=== PATIENT | female | born 1960 | race Caucasian/White ===

== ENCOUNTER 2019-08-12 13:00 | Emergency (ER) | payer MEDICARE, SELFPAY ==
[2019-08-12] VITALS (15 sets, daily range): BP systolic 105–142; BP diastolic 62–78; PULSE 67–85; RESP 12–30; TEMP 36.7; O2SAT 95–100; BMI 20.5
--- NOTE | 2019-08-12 13:12 | ED_ITS ---
HPI - Chest Pain General Chief Complaint: Chest Pain Stated Complaint: States thinks having heart attack Time Seen by Provider: 08/12/19 13:02 Source: patient Mode of arrival: Ambulatory Limitations: no limitations History of Present Illness HPI narrative: Patient is a 58-year-old female who presents with chest pressure. She has a history of [place] which she says she had a heart attack in the garden but never went in and was found later on and EKG. Today she dropped her off for his 1st chemotherapy appointment she felt better flies in her stomach and then felt pressure in her chest and pressure in her eyeballs. She does not have any pain at the moment. She denies any shortness of breath or diaphoresis. She says during her last heart attack she had sweating and shortness breath. She denies any dizziness. He actually says that she has felt some of the symptoms ongoing for the past few days but got significantly worse when she dropped her off. Father has 8 stents MD complaint: chest pain Pain location: substernal Severity: mild Quality: tightness Relieving factors: nothing Exacerbating factors: nothing Related Data Home Medications Medication Instructions Recorded Confirmed DOCUSATE SODIUM (Colace / Allie) 0 PO * UK DOSE/FREQUENCY #0 05/19/06 LEVOTHYROXINE SODIUM (Synthroid) 0.175 mg PO EVERY DAY #0 05/19/06 Oxycodone/Acetaminophen (Percocet 1 - 2 tab PO Q4H PRN #0 05/19/06 5-325 MG Tablet) [CITRUS PILL] #0 05/19/06 Allergies Allergy/AdvReac Type Severity Reaction Status Date / Time egg [EGG] Allergy Unknown HIVES, Verified 08/12/19 13:39 ITCHING morphine Allergy Unknown Verified 08/12/19 13:39 Penicillins [PENICILLINS] Allergy Unknown WELTS Verified 08/12/19 13:39 Sulfa (Sulfonamide Allergy Unknown ANAPHYLAXIS Verified 08/12/19 13:39 Antibiotics) [SULFA (SULFONAMIDE ANTIBIOTICS)] ANTIINFLAMMATORIES Allergy Unknown PHARMACIST Uncoded 08/12/19 13:39 SAYS STAY AWAY FROM IT. Review of Systems Review of Systems Narrative: GENERAL: Denies chills, fatigue, malaise, fever, sweats, travel HEENT: Denies sinus pain, ear pain, sore throat, difficulty swallowing, neck pain RESPIRATORY: Denies dyspnea, cough, wheezing, hemoptysis, sputum. CARDIOVASCULAR: See HPI GASTROINTESTINAL: Denies nausea, vomiting, abdominal pain, diarrhea, constipation, melena. : Denies dysuria, frequency, incontinence, hematuria, urinary retention, flank pain. MUSCULOSKELETAL: Denies weakness, joint pain, or bony pain SKIN: No rash, no erythema, no pruritus NEUROLOGIC: Denies weakness, dizziness, headache, numbness, change in speech, confusion PSYCHIATRIC: No concerning psychosocial issues. 12 point review of systems is negative except for those stated above and HPI Patient History Medical History Hypothyroid (Acute) Toxic shock (Acute) Social History Smoking Status: Current every day smoker Substance Use Type: marijuana Exam Initial Vital Signs Initial Vital Signs: Vital Signs Pulse Rate 79 08/12/19 13:03 Respiratory Rate 28 H 08/12/19 13:03 Pulse Oximetry 99 08/12/19 13:03 GENERAL: Well-appearing, well-nourished and in no acute distress. HEENT: Head atraumatic,EOMI, pupils reactive, face symmetric, moist mucous membranes. Trach scar present CARDIOVASCULAR: Regular rate and rhythm without murmurs, rubs or gallops. RESPIRATORY: Breath sounds equal bilaterally, no wheezes rales or rhonchi. ABDOMEN: Soft, nontender. Normoactive bowel sounds all 4 quadrants. No guarding or rebound. EXTREMITIES: Normal range of motion, no clubbing or edema. Neurovascularly intact NEUROLOGICAL: Alert and oriented x4.Normal gait and speech. SKIN: Warm, dry, no laceration, no petechiae, no rashes or lesions. Scores HEART Score Heart Score history: Slightly Suspicious Heart Score EKG: Normal Heart Score Age: 45-64 years old Heart Score risk factors: 1-2 risk factors Heart Score troponin: < or = to normal limit Heart Score Total: 2 Course Orders Ordered: ED Orders 08/12/19 13:10 XR chest 1V Stat Complete Blood Count AUTO DIFF Stat Comprehensive Metabolic Panel Stat Lipase Stat Partial Thromboplastin Time Stat Prothrombin Time INR Stat Troponin & CK Cardiac Panel Stat EKG-12 Lead Stat 08/12/19 14:16 EKG-12 Lead Stat 08/12/19 14:57 Troponin I Stat Discontinued Medications Aspirin (Aspirin Chew) 324 mg PO NOW ONE Stop: 08/12/19 13:11 Last Admin: 08/12/19 13:40 Dose: 324 mg Documented by: HARDY Vital Signs Vital signs: Vital Signs - 8 hr 08/12/19 13:03 08/12/19 13:06 08/12/19 13:10 Temperature Pulse Rate 79 85 78 Respiratory Rate 28 H 30 H 30 H Blood Pressure 142/78 H Pulse Oximetry 99 100 100 08/12/19 13:20 08/12/19 13:30 08/12/19 13:40 Temperature 98.1 F Pulse Rate 74 72 71 Respiratory Rate 18 12 30 H Blood Pressure 142/78 H 108/62 Pulse Oximetry 99 99 99 08/12/19 13:50 08/12/19 14:00 08/12/19 14:10 Temperature Pulse Rate 79 79 73 Respiratory Rate 23 26 H 14 Blood Pressure 109/66 Pulse Oximetry 99 98 98 08/12/19 14:20 08/12/19 14:30 08/12/19 14:40 Temperature Pulse Rate 70 76 77 Respiratory Rate 25 H 27 H 17 Blood Pressure 105/63 Pulse Oximetry 99 98 98 08/12/19 15:00 08/12/19 15:30 08/12/19 16:00 Temperature Pulse Rate 67 78 67 Respiratory Rate 14 28 H 16 Blood Pressure 106/62 112/69 105/65 Pulse Oximetry 99 95 96 MDM - Chest Pain Lab Data Attestation: I reviewed the patient's lab results. Result diagrams: 08/12/19 13:10 08/12/19 13:10 Labs: Lab Results 08/12/19 08/12/19 08/12/19 Range/Units 13:10 13:10 13:10 WBC 6.6 (4.5-11.0) X10^3/uL RBC 4.51 (4.0-5.2) X10^6/uL Hgb 13.7 (12.0-16.0) g/dL Hct 40.3 (36-46) % MCV 89.3 (80-100) fL MCH 30.4 (26-34) PG MCHC 34.1 (30-36) % RDW 14.3 (11.6-14.8) % Plt Count 279 (150-400) X10^3/uL Neut % (Auto) 52.9 (50-75) % Lymph % (Auto) 40.2 H (25-40) % [place] % (Auto) 4.4 (3-14) % Eos % (Auto) 1.9 L (2-4) % Baso % (Auto) 0.6 (0-2) % Neut # (Auto) 3500 (0363-9268) /uL Lymph # (Auto) 2600 (8840-6577) /uL [place] # (Auto) 300 (0-900) /uL Eos # (Auto) 100 (0-450) /uL Baso # (Auto) 0 (0-100) /uL PT 10.3 (10.1-12.7) SECONDS INR 0.9 (0.9-1.3) APTT 32 (26.4-36.2) SECONDS Sodium 140 (137-145) mmol/L Potassium 4.0 (3.4-5.1) mmol/L Chloride 105 (98-107) mmol/L Carbon Dioxide 30 (22-32) mmol/L BUN 22 H (7-17) mg/dL Creatinine 0.69 (0.52-1.04) mg/dL Estimated GFR > 60.0 (>60) mL/min BUN/Creatinine Ratio 31.9 H (6-22) Glucose 77 (70-100) mg/dL Calcium 9.5 (8.4-10.2) mg/dL Total Bilirubin 0.4 (0.2-1.3) mg/dL AST 38 H (14-36) IU/L ALT 24 (<35) IU/L Alkaline Phosphatase 43 (38-126) U/L Total Creatine Kinase 59 (30-135) U/L CK-MB (CK-2) TNP CK-MB (CK-2) Rel Index TNP Troponin I < 0.012 (0.01-0.034) ng/mL Total Protein 7.2 (6.3-8.2) g/dL Albumin 4.6 (3.5-5.0) g/dL Globulin 2.6 (1.7-4.1) g/dL Albumin/Globulin Ratio 1.8 (1.0-2.8) Lipase 223 (23-300) U/L 08/12/19 Range/Units 14:57 WBC (4.5-11.0) X10^3/uL RBC (4.0-5.2) X10^6/uL Hgb (12.0-16.0) g/dL Hct (36-46) % MCV (80-100) fL MCH (26-34) PG MCHC (30-36) % RDW (11.6-14.8) % Plt Count (150-400) X10^3/uL Neut % (Auto) (50-75) % Lymph % (Auto) (25-40) % [place] % (Auto) (3-14) % Eos % (Auto) (2-4) % Baso % (Auto) (0-2) % Neut # (Auto) (0348-6560) /uL Lymph # (Auto) (1164-6858) /uL [place] # (Auto) (0-900) /uL Eos # (Auto) (0-450) /uL Baso # (Auto) (0-100) /uL PT (10.1-12.7) SECONDS INR (0.9-1.3) APTT (26.4-36.2) SECONDS Sodium (137-145) mmol/L Potassium (3.4-5.1) mmol/L Chloride (98-107) mmol/L Carbon Dioxide (22-32) mmol/L BUN (7-17) mg/dL Creatinine (0.52-1.04) mg/dL Estimated GFR (>60) mL/min BUN/Creatinine Ratio (6-22) Glucose (70-100) mg/dL Calcium (8.4-10.2) mg/dL Total Bilirubin (0.2-1.3) mg/dL AST (14-36) IU/L ALT (<35) IU/L Alkaline Phosphatase (38-126) U/L Total Creatine Kinase (30-135) U/L CK-MB (CK-2) CK-MB (CK-2) Rel Index Troponin I < 0.012 (0.01-0.034) ng/mL Total Protein (6.3-8.2) g/dL Albumin (3.5-5.0) g/dL Globulin (1.7-4.1) g/dL Albumin/Globulin Ratio (1.0-2.8) Lipase (23-300) U/L Imaging Data Chest x-ray: Radiologist's Impression: PROCEDURE: XR CHEST 1V INDICATIONS: chest pain TECHNIQUE: One view of the chest was acquired. COMPARISON: [facility], , XR CHEST 2VW, 09/12/2016, 14:01. FINDINGS: Surgical changes and devices: None. Lungs and pleura: Lungs are clear. No pleural effusions or pneumothorax. Mediastinum: Mediastinal contours appear normal. Heart size is normal. Bones and chest wall: No suspicious bony lesions. Overlying soft tissues appear unremarkable. IMPRESSION: Stable radiographic evaluation of the chest without acute cardiopulmonary abnormalities or focal airspace disease. Dictated by: Richard Cunningham M.D. on 08/12/2019 at 14:40 Approved by: Richard Cunningham M.D. on 08/12/2019 at 14:41 ECG Data Attestation: I personally reviewed and interpreted this ECG as follows: Prior ECG tracings: not available for review Interpretation: Normal sinus rhythm rate 73 p.r. interval 142 QRS [address] elevation depression or T-wave inversions EKG 2. Normal sinus rhythm rate [address] changes similar to prior MDM Narrative Medical decision making narrative: Patient states that she is allergic to aspirin she is not sure what her allergy is someone told her not to take it some time ago. She is willing to try she took aspirin she has had no reaction to it. She says that her chest discomfort is very minimal she wants nothing more for pain. She says in the center of her chest it feels like anxiety but she has some of pressure points around her chest. She still feels like she has some fluttering in her abdomen. I discussed with patient need for outpatient stress test and further workup and when to return to the emergency department. I discussed all findings with the patient , Education has been performed regarding treatment plan, diagnosis, warning signs and symptoms and all concerns have been addressed. Verbally agree with and understood all of the above. Discharge Plan Departure Patient Disposition: Home Clinical Impression: Atypical chest pain Discharge Date/Time: 08/12/19 16:14 Instructions: DI for Atypical Chest Pain Activity Restrictions/Additional Instructions: *You have been diagnosed with atypical chest pain *What to do: At this time I recommend you have an outpatient stress test and echocardiogram arranged by your primary care provider. Do not need to stay in the hospital have this testing done *Continue to take medications as directed *Follow up with your primary care provider in 2-3 days *Return to ER if you should have increasing chest pain, heart palpitations shortness of breath, sweating or any new, worsening or concerning symptoms Prescriptions: No Action DOCUSATE SODIUM (Colace / Allie) 0 PO * UK DOSE/FREQUENCY Qty: 0 RF: 0 LEVOTHYROXINE SODIUM (Synthroid) 0.175 mg PO EVERY DAY Qty: 0 RF: 0 Oxycodone/Acetaminophen (Percocet 5-325 MG Tablet) 1 - 2 tab PO Q4H PRN Qty: 0 RF: 0 [CITRUS PILL] Qty: 0 RF: 0 Referrals: Mary Grace Madden PA-C [Primary Care Provider] -
[2019-08-12 13:18] LABS: Add Manual Diff / Slide Review NO; Basophils Absolute Auto 0 /uL (0-100); Basophils Percent Auto 0.6 % (0-2); Eosinophils Absolute Auto 100 /uL (0-450); Eosinophils Percent Auto 1.9 % (2-4); Hematocrit 40.3 % (36-46); Hemoglobin 13.7 g/dL (12.0-16.0); Lymphocytes Absolute Auto 2600 /uL (1100-4500); Lymphocytes Percent Auto 40.2 % (25-40); Mean Corpuscular HGB Conc 34.1 % (30-36); Mean Corpuscular Hemoglobin 30.4 PG (26-34); Mean Corpuscular Volume 89.3 fL (80-100); Monocytes Absolute Auto 300 /uL (0-900); Monocytes Percent Auto 4.4 % (3-14); Neutrophils Absolute Auto 3500 /uL (1500-7000); Neutrophils Percent Auto 52.9 % (50-75); Platelet Count 279 X10^3/uL (150-400); Red Blood Cell Count 4.51 X10^6/uL (4.0-5.2); Red Cell Distribution Width 14.3 % (11.6-14.8); White Blood Cell Count 6.6 X10^3/uL (4.5-11.0)
[2019-08-12 13:28] LABS: INR 0.9 (0.9-1.3); Prothrombin Time 10.3 SECONDS (10.1-12.7)
[2019-08-12 13:31] LABS: PTT Partial Thromboplastin Tim 32 SECONDS (26.4-36.2)
[2019-08-12 13:32] LABS: Alanine Aminotransferase 24 IU/L (<35); Albumin 4.6 g/dL (3.5-5.0); Alkaline Phosphatase 43 U/L (38-126); Aspartate Aminotransferase 38 IU/L (14-36); BUN Creatinine Ratio 31.9 (6-22); Bilirubin Total 0.4 mg/dL (0.2-1.3); Blood Urea Nitrogen 22 mg/dL (7-17); Calcium 9.5 mg/dL (8.4-10.2); Carbon Dioxide 30 mmol/L (22-32); Chloride 105 mmol/L (98-107); Creatine Kinase 59 U/L (30-135); Estimated Glomerular Filt Rate > 60.0 mL/min (>60); Glucose 77 mg/dL (70-100); Sodium 140 mmol/L (137-145); Total Protein 7.2 g/dL (6.3-8.2)
[2019-08-12 13:33] LABS: Albumin Globulin Ratio 1.8 (1.0-2.8); Globulin 2.6 g/dL (1.7-4.1); HEMOLYSIS 26 (0-50); Lipase 223 U/L (23-300)
[2019-08-12] MEDS: ASPIRIN 81 MG CHEW TAB 324 MG PO (13:40)
[2019-08-12 13:44] LABS: Troponin I < 0.012 ng/mL (0.01-0.034)
[2019-08-12 15:27] LABS: Troponin I < 0.012 ng/mL (0.01-0.034)
== END 2019-08-12 16:14 | disposition home or self-care (01) ==
PROVIDERS: Emergency Provider Emergency Medicine; PCP Physician Assistant
DX: R07.89 Other chest pain (principal)
CPT/HCPCS: 36415; 71045; 80053; 82550; 83690; 84484; 85025; 85610; 85730; 93005; 99285

== ENCOUNTER 2020-03-11 21:54 | Emergency (ER) | payer MEDICARE, SELFPAY ==
[2020-03-11 21:55] VITALS: BP 130/78; PULSE 87; RESP 17; TEMP 36.8; O2SAT 97; BMI 25.2
[2020-03-11 22:14] VITALS: PULSE 74; O2SAT 98
--- NOTE | 2020-03-11 22:29 | ED_ITS ---
HPI - Female Genitourinary General Chief complaint: Urogenital-Female Stated complaint: burning with urination, intense pain Time Seen by Provider: 03/11/20 21:55 Source: patient Mode of arrival: Ambulatory Limitations: no limitations History of Present Illness HPI Narrative: 59-year-old female daily smoker with history of hypothyroid presents with a chief complaint of burning, frequency, urgency and dysuria over the past few days. She was seen and evaluated by her PCP earlier today and found to have a UTI and was prescribed Macrobid. She's taken one dose. Since the visit she admits to some episodic flank pain. She denies fever, chills nausea or vomiting. Her pain does not follow any obvious pattern and no clear provocation or palliation is noted. It does radiate around her left flank into her suprapubic region. She denies any vaginal bleeding or discharge. MD Complaint: dysuria and UTI Onset (ago): day(s) Location: suprapubic Female Urogenital Radiation: L Flank Severity: moderate Quality: Aching Duration: intermittent Exacerbating factors: none Urinary symptoms: Difficulty Urinating, Dysuria, Flank Pain, Frequency and Urgency Patient : No Associated symptoms: denies other symptoms Related Data Home Medications Medication Instructions Recorded Confirmed DOCUSATE SODIUM (Colace / Allie) 0 PO * UK DOSE/FREQUENCY #0 05/19/06 LEVOTHYROXINE SODIUM (Synthroid) 0.175 mg PO EVERY DAY #0 05/19/06 Oxycodone/Acetaminophen (Percocet 1 - 2 tab PO Q4H PRN #0 05/19/06 5-325 MG Tablet) [CITRUS PILL] #0 05/19/06 Previous Rx's Medication Instructions Recorded ciprofloxacin HCl [Cipro] 500 mg PO BID #14 tab 03/11/20 Allergies Allergy/AdvReac Type Severity Reaction Status Date / Time egg [EGG] Allergy Unknown HIVES, Verified 08/12/19 13:39 ITCHING morphine Allergy Unknown Verified 08/12/19 13:39 Penicillins [PENICILLINS] Allergy Unknown WELTS Verified 08/12/19 13:39 Sulfa (Sulfonamide Allergy Unknown ANAPHYLAXIS Verified 08/12/19 13:39 Antibiotics) [SULFA (SULFONAMIDE ANTIBIOTICS)] ANTIINFLAMMATORIES Allergy Unknown PHARMACIST Uncoded 08/12/19 13:39 SAYS STAY AWAY FROM IT. Review of Systems Constitutional Constitutional: Denies chills, Denies fatigue, Denies fever(s), Denies frequent falls, Denies lethargy and Denies weakness Eyes Eyes: Denies change in vision, Denies eye discharge, Denies irritation and Denies loss of vision ENT Ears, Nose, Mouth, and Throat: Denies change in voice, Denies dizziness, Denies neck pain, Denies sore throat and Denies throat swelling Cardiovascular Cardiovascular: Denies chest pain, Denies irregular heart rhythm, Denies lightheadedness, Denies palpitations, Denies dyspnea, Denies dyspnea on exertion and Denies orthopnea Respiratory Respiratory: Denies cough, Denies dyspnea, Denies dyspnea on exertion and Denies wheezing Gastrointestinal Gastrointestinal: Denies abdominal pain, Denies change in bowel habits, Denies diarrhea, Denies nausea and Denies vomiting Genitourinary Genitourinary: Reports dysuria, Reports dysuria, Reports flank pain, Reports urinary frequency, Reports urinary incontinence and Reports urinary urgency Genitourinary: Reports urinary frequency, Reports difficulty voiding, Reports dysuria, Reports dysuria, Reports pelvic pain, Reports flank pain, Reports urinary incontinence and Reports urinary urgency Musculoskeletal Musculoskeletal: Denies neck pain and Denies numbness Integumentary/Breasts Skin/Breast: Denies pruritus, Denies erythema, Denies rash and Denies wounds Neurologic Neurologic: Denies behavioral changes, Denies confusion, Denies dizziness, Denies frequent falls, Denies loss of vision, Denies numbness and Denies weakness Psychiatric Psychiatric: Denies anxiety, Denies behavioral changes, Denies confusion, Denies depression, Denies homicidal ideation and Denies suicidal ideation Endocrine Endocrine: Denies fatigue, Denies flushing and Denies palpitations Hematologic/Lymphatic Hematologic/Lymphatic: Denies easy bruising Allergic/Immunologic Allergic/Immunologic: Denies urticaria, Denies throat swelling and Denies wheezing Patient History Medical History Hypothyroid Toxic shock Substance Use Type: marijuana Exam Narrative Exam Narrative: GENERAL: [59] year old patient appears stated age. Well- nourished, well-developed patient, in mild distress. HEAD: Atraumatic. Normocephalic. EYES: Pupils equal round and reactive. Extraocular motions intact. No scleral icterus. No injection or drainage. ENT: Nose without bleeding, purulent drainage. Throat without erythema, tonsillar hypertrophy or exudate. Airway patent. NECK: Trachea midline. Non tender CARDIOVASCULAR: Regular rate and rhythm without murmurs, gallops, or rubs. RESPIRATORY: Clear to auscultation. Breath sounds equal bilaterally. No wheezes, rales, or rhonchi. GASTROINTESTINAL: Abdomen soft, mild tenderness in suprapubic region, nondistended. EXTREMITIES: No edema or joint tenderness. BACK: Nontender without deformity or crepitance. No flank tenderness. NEURO: AOx3. SKIN: No rash or erythema of visible areas Initial Vital Signs Initial Vital Signs: Vital Signs Temperature 98.3 F 03/11/20 21:55 Pulse Rate 87 03/11/20 21:55 Respiratory Rate 17 03/11/20 21:55 Blood Pressure 130/78 03/11/20 21:55 Pulse Oximetry 97 03/11/20 21:55 Course Orders Ordered: ED Orders 03/11/20 22:10 Urine Culture Stat Urine Microscopic Stat 03/11/20 22:38 CT kidney ureter bladder (KUB) Stat 03/11/20 22:55 Basic Metabolic Panel Stat Complete Blood Count AUTO DIFF Stat Discontinued Medications Levofloxacin (Levofloxacin 250 Mg Tablet) 500 mg PO NOW ONE Stop: 03/11/20 23:58 Last Admin: 03/12/20 00:03 Dose: 500 mg Documented by: CHARLINE Vital Signs Vital signs: Vital Signs - 8 hr 03/11/20 21:55 Temperature 98.3 F Pulse Rate 87 Respiratory Rate 17 Blood Pressure 130/78 Pulse Oximetry 97 MDM - Female Genitourinary Lab Data Result diagrams: 03/11/20 22:55 03/11/20 22:55 Labs: Lab Results 03/11/20 03/11/20 03/11/20 Range/Units 22:10 22:55 22:55 WBC 12.0 H (4.5-11.0) X10^3/uL RBC 4.48 (4.0-5.2) X10^6/uL Hgb 12.8 (12.0-16.0) g/dL Hct 39.8 (36-46) % MCV 88.7 (80-100) fL MCH 28.5 (26-34) PG MCHC 32.2 (30-36) % RDW 15.6 H (11.6-14.8) % Plt Count 237 (150-400) X10^3/uL Neut % (Auto) 69.6 (50-75) % Lymph % (Auto) 23.3 L (25-40) % [place] % (Auto) 5.5 (3-14) % Eos % (Auto) 1.2 L (2-4) % Baso % (Auto) 0.4 (0-2) % Neut # (Auto) 8400 H (7267-7114) /uL Lymph # (Auto) 2800 (6564-6730) /uL [place] # (Auto) 700 (0-900) /uL Eos # (Auto) 100 (0-450) /uL Baso # (Auto) 0 (0-100) /uL Sodium 137 (137-145) mmol/L Potassium 3.8 (3.4-5.1) mmol/L Chloride 104 (98-107) mmol/L Carbon Dioxide 32 (22-32) mmol/L BUN 15 (7-17) mg/dL Creatinine 0.93 (0.52-1.04) mg/dL Estimated GFR > 60.0 (>60) mL/min BUN/Creatinine Ratio 16.1 (6-22) Glucose 89 (70-100) mg/dL Calcium 9.4 (8.4-10.2) mg/dL Urine RBC 0-1/hpf (0-5/HPF) Urine WBC 10-30/hpf H (0-5/HPF) Urine Bacteria Few (2-10) H (None) Ur Culture Indicated? Specimen cultured Urine Dip Bedside Urine Glucose Negative Bedside Urine Bilirubin - Negative Bedside Urine Ketone - Negative Urine Specific [place] 1.010 Bedside Urine Occult Blood +++ Bedside Urine pH 6.0 Bedside Urine Protein +/- 15 Bedside Urine Urobilinogen - Negative Bedside Urine Nitrite - Negative Bedside Urine Leukocytes ++ [address] scan - abdomen/pelvis: Radiologist's Impression: No urinary stone or other acute findings MDM Narrative Medical decision making narrative: Multiple etiologies for patient's symptoms considered including: [Kidney stone versus pyelonephritis versus other] Patient's symptoms improved over duration of stay with above-stated therapies. Findings and discharge diagnosis discussed with patient/family followed by verbalization of understanding Return precautions discussed with patient/family whom verbalize understanding. Discharge Plan Departure Patient Disposition: Home Clinical Impression: Pyelonephritis Instructions: DI for Kidney Infection Activity Restrictions/Additional Instructions: *You have been diagnosed with [urinary tract infection which is likely moving toward her left kidney] *What to do: *Take medications as directed: The antibiotic which she took earlier is not likely to be very helpful for a kidney infection, please stop the antibiotic you were prescribed earlier and get the prescription filled that we gave you. *Follow up with your primary care provider in 2-3 days, call for an appointment. Let them know you were seen in the Emergency Department and that we ask that you be seen in follow up *Return to ER if you should have any new, worsening or concerning symptoms, such as [fever, shaking chills, worsening pain, persistent vomiting or other bothersome symptoms Prescriptions: New ciprofloxacin HCl [Cipro] 500 mg tablet 500 mg PO BID Qty: 14 RF: 0 No Action DOCUSATE SODIUM (Colace / Allie) 0 PO * UK DOSE/FREQUENCY Qty: 0 RF: 0 LEVOTHYROXINE SODIUM (Synthroid) 0.175 mg PO EVERY DAY Qty: 0 RF: 0 Oxycodone/Acetaminophen (Percocet 5-325 MG Tablet) 1 - 2 tab PO Q4H PRN Qty: 0 RF: 0 [CITRUS PILL] Qty: 0 RF: 0 Referrals: Mary Grace Madden PA-C [Primary Care Provider] -
[2020-03-11 22:30] VITALS: BP 139/94; PULSE 82; O2SAT 97
[2020-03-11 22:31] LABS: Bacteria Urine Few (2-10); Culture Indicated Urine Specimen Cultured; RBC Urine 0-1/HPF (0-5/HPF); WBC Urine 10-30/HPF (0-5/HPF)
--- NOTE | 2020-03-11 22:38 | DI.CT.S_ITS ---
PROCEDURE: CT KIDNEY URETER BLADDER (KUB) INDICATIONS: flank pain, hematuria TECHNIQUE: Noncontrast 5 mm thick sections acquired from the diaphragms to the symphysis. 5 mm thick coronal and sagittal reformats were then performed. For radiation dose reduction, the following was used: automated exposure control, adjustment of mA and/or kV according to patient size. COMPARISON: US, ABDOMEN COMPLETE, 07/27/2014, 11:29. FINDINGS: Image quality: Excellent. Lung bases: Lung bases are clear. Heart size is normal. Urinary system: Both kidneys are normal in size. No kidney stones. No hydronephrosis or perinephric fat stranding. There is a 5.4 cm simple appearing cyst in the superior pole of the left kidney.Both ureters appear non-dilated throughout their expected courses. Bladder is semi contracted. Bladder wall thickness is normal; no calcified bladder stones. Other solid organs: Liver is normal in size. Subtle hypodensity adjacent to the falciform ligament is likely secondary to focal fat. Gallbladder is normal. Pancreas is normal in contours. Spleen is normal in size. No adrenal nodules. Peritoneum and bowel: Normal appendix. Unenhanced bowel loops demonstrate normal wall thickness and caliber. No free fluid or air. Nodes and vessels: No retroperitoneal or mesenteric adenopathy by size criteria. Aorta and inferior vena cava are normal in caliber. Moderate aortic calcification. Abdominal wall: No ventral hernias. Pelvis: Uterus and ovaries are unremarkable. No free fluid in the cul-de-sac or adnexa. No inguinal hernias or adenopathy. Bones: No suspicious bony lesions. No vertebral body compression fractures. IMPRESSION: 1. No urinary stones or hydronephrosis. 2. A large 5.4 cm diameter simple appearing cyst in the superior pole of the right kidney. 3. Normal appendix. No significant discrepancy with the operation shift supervisor radiology preliminary report. Dictated by: Lionel Garrett M.D. on 03/12/2020 at 7:58 Approved by: Lionel Garrett M.D. on 03/12/2020 at 8:02
[2020-03-11 23:00] VITALS: BP 107/72; PULSE 68; O2SAT 96
[2020-03-11 23:10] LABS: Add Manual Diff / Slide Review NO; Basophils Absolute Auto 0 /uL (0-100); Basophils Percent Auto 0.4 % (0-2); Eosinophils Absolute Auto 100 /uL (0-450); Eosinophils Percent Auto 1.2 % (2-4); Hematocrit 39.8 % (36-46); Hemoglobin 12.8 g/dL (12.0-16.0); Lymphocytes Absolute Auto 2800 /uL (1100-4500); Lymphocytes Percent Auto 23.3 % (25-40); Mean Corpuscular HGB Conc 32.2 % (30-36); Mean Corpuscular Hemoglobin 28.5 PG (26-34); Mean Corpuscular Volume 88.7 fL (80-100); Monocytes Absolute Auto 700 /uL (0-900); Monocytes Percent Auto 5.5 % (3-14); Neutrophils Absolute Auto 8400 /uL (1500-7000); Neutrophils Percent Auto 69.6 % (50-75); Platelet Count 237 X10^3/uL (150-400); Red Blood Cell Count 4.48 X10^6/uL (4.0-5.2); Red Cell Distribution Width 15.6 % (11.6-14.8)
[2020-03-11 23:17] LABS: BUN Creatinine Ratio 16.1 (6-22); Blood Urea Nitrogen 15 mg/dL (7-17); Calcium 9.4 mg/dL (8.4-10.2); Carbon Dioxide 32 mmol/L (22-32); Chloride 104 mmol/L (98-107); Estimated Glomerular Filt Rate > 60.0 mL/min (>60); Glucose 89 mg/dL (70-100); HEMOLYSIS < 15 (0-50); Potassium 3.8 mmol/L (3.4-5.1); Sodium 137 mmol/L (137-145)
[2020-03-11 23:30] VITALS: PULSE 70; O2SAT 96
[2020-03-12] VITALS: PULSE 71; O2SAT 94
[2020-03-12] MEDS: levoFLOXacin 250 MG TABLET 500 MG PO (00:03)
[2020-03-12 00:30] VITALS: PULSE 70; O2SAT 92
[2020-03-12 00:36] VITALS: BP 97/62; PULSE 75; O2SAT 94
== END 2020-03-12 00:43 | disposition home or self-care (01) ==
PROVIDERS: Emergency Provider Emergency Medicine; PCP Physician Assistant
DX: N12 Tubulo-interstitial nephritis, not specified as acute or chronic (principal); R10.9 Unspecified abdominal pain; R10.2 Pelvic and perineal pain; R35.0 Frequency of micturition; R31.9 Hematuria, unspecified; E03.9 Hypothyroidism, unspecified
CPT/HCPCS: 36415; 74176; 80048; 81003; 81015; 85025; 87077; 87086; 87186; 99284

== ENCOUNTER 2020-03-19 13:16 | Emergency (ER) | payer MEDICARE, SELFPAY ==
[2020-03-19] VITALS (7 sets, daily range): BP systolic 102–146; BP diastolic 63–77; PULSE 60–84; RESP 10–18; TEMP 37; O2SAT 97–99; BMI 25.2
[2020-03-19 13:50] LABS: Bacteria Urine None Seen; RBC Urine None Seen (0-5/HPF); WBC Urine None Seen (0-5/HPF)
--- NOTE | 2020-03-19 13:55 | ED.WEAKNESS ---
HPI - Weakness General Chief complaint: Weakness Stated complaint: nausea,light headed,shaking,heavy arms Time Seen by Provider: 03/19/20 13:20 Source: patient and old records reviewed Mode of arrival: Ambulatory Limitations: no limitations History of Present Illness HPI Narrative: Patient is a 59-year-old female who presents with generalized weakness. She was seen evaluated last week diagnosed with pyelonephritis put on antibiotics which she finished. She says those symptoms have overall improved but she just generally feels weak all over nauseated no vomiting. She denies any chest pain palpitation she has not passed out no cough or shortness of breath. Patient states that her TSH is greater than 200 as of last week per her primary care provider. I actually do not have results in our computer system. She states she nor primary are working on it. MD Complaint: generalized weakness Related Data Home Medications Medication Instructions Recorded Confirmed DOCUSATE SODIUM (Colace / Allie) 0 PO * DOSE/FREQUENCY #0 05/19/06 LEVOTHYROXINE SODIUM (Synthroid) 0.175 mg PO EVERY DAY #0 05/19/06 Oxycodone/Acetaminophen (Percocet 1 - 2 tab PO Q4H PRN #0 05/19/06 5-325 MG Tablet) [CITRUS PILL] #0 05/19/06 Previous Rx's Medication Instructions Recorded ciprofloxacin HCl [Cipro] 500 mg PO BID #14 tab 03/11/20 Allergies Allergy/AdvReac Type Severity Reaction Status Date / Time egg [EGG] Allergy Unknown HIVES, Verified 08/12/19 13:39 ITCHING morphine Allergy Unknown Verified 08/12/19 13:39 Penicillins [PENICILLINS] Allergy Unknown WELTS Verified 08/12/19 13:39 Sulfa (Sulfonamide Allergy Unknown ANAPHYLAXIS Verified 08/12/19 13:39 Antibiotics) [SULFA (SULFONAMIDE ANTIBIOTICS)] ANTIINFLAMMATORIES Allergy Unknown PHARMACIST Uncoded 08/12/19 13:39 SAYS STAY AWAY FROM IT. Review of Systems Review of Systems ROS Unobtainable: All systems reviewed & are unremarkable except as noted in HPI and below Constitutional Constitutional: Denies chills, Denies fever(s), Reports lethargy and Reports weakness Cardiovascular Cardiovascular: Denies chest pain, Denies irregular heart rhythm, Denies lightheadedness, Denies palpitations, Denies dyspnea, Denies dyspnea on exertion and Denies orthopnea Respiratory Respiratory: Denies cough, Denies dyspnea, Denies dyspnea on exertion and Denies wheezing Gastrointestinal Gastrointestinal: Denies abdominal pain, Reports nausea and Denies vomiting Integumentary/Breasts Skin/Breast: Denies pruritus, Denies erythema, Denies rash and Denies wounds Neurologic Neurologic: Reports weakness Endocrine Endocrine: Denies palpitations Allergic/Immunologic Allergic/Immunologic: Denies wheezing Patient History Medical History (Updated 03/19/20 @ 15:24 by Radha Mccoy DO) Hypothyroid Toxic shock Social History Smoking Status: Current every day smoker Smoking Status: Current every day smoker Substance Use Type: marijuana Exam Initial Vital Signs Initial Vital Signs: Vital Signs Pulse Rate 71 03/19/20 13:47 Respiratory Rate 16 03/19/20 13:47 Pulse Oximetry 99 03/19/20 13:47 GENERAL: Well-appearing, well-nourished and in no acute distress. HEENT: Head atraumatic,EOMI, pupils reactive, face symmetric, moist mucous membranes CARDIOVASCULAR: Regular rate and rhythm without murmurs, rubs or gallops. RESPIRATORY: Breath sounds equal bilaterally, no wheezes rales or rhonchi. ABDOMEN: Soft, nontender. Normoactive bowel sounds all 4 quadrants. No guarding or rebound. : No CVA tenderness EXTREMITIES: Normal range of motion, no clubbing or edema. Neurovascularly intact NEUROLOGICAL: Alert and oriented x4.Normal gait and speech. SKIN: Warm, dry, no laceration, no petechiae, no rashes or lesions. Course Orders Ordered: ED Orders 03/19/20 13:30 Urinalysis and Microscopic Stat 03/19/20 13:39 EKG-12 Lead Stat 03/19/20 14:16 Complete Blood Count AUTO DIFF Stat Comprehensive Metabolic Panel Stat Lipase Stat Discontinued Medications Sodium Chloride (Normal Saline 0.9%) 1,000 mls @ 1,000 mls/hr IV CONT SHANNON Last Admin: 03/19/20 14:02 Dose: 1,000 mls/hr Documented by: TSERING Ondansetron HCl (Ondansetron 4 Mg/2 Ml Inj) 4 mg IV NOW ONE Stop: 03/19/20 13:39 Last Admin: 03/19/20 14:02 Dose: 4 mg Documented by: TSERING Vital Signs Vital signs: Vital Signs - 8 hr 03/19/20 13:47 03/19/20 14:06 03/19/20 14:43 Temperature 98.6 F Pulse Rate 71 76 75 Respiratory Rate 16 16 18 Blood Pressure 128/76 146/77 H Pulse Oximetry 99 98 99 03/19/20 14:44 03/19/20 15:00 03/19/20 15:01 Temperature Pulse Rate 68 64 60 Respiratory Rate 17 11 L 10 L Blood Pressure 121/63 102/64 Pulse Oximetry 99 97 97 03/19/20 15:43 Temperature Pulse Rate 84 Respiratory Rate 16 Blood Pressure 136/64 Pulse Oximetry 98 MDM - Weakness Lab Data Attestation: I reviewed the patient's lab results. Result diagrams: 03/19/20 14:16 03/19/20 14:16 Labs: Lab Results 03/19/20 03/19/20 03/19/20 Range/Units 13:30 14:16 14:16 WBC 5.5 (4.5-11.0) X10^3/uL RBC 4.05 (4.0-5.2) X10^6/uL Hgb 12.2 (12.0-16.0) g/dL Hct 36.0 (36-46) % MCV 88.9 (80-100) fL MCH 30.1 (26-34) PG MCHC 33.9 (30-36) % RDW 16.0 H (11.6-14.8) % Plt Count 234 (150-400) X10^3/uL Neut % (Auto) 47.9 L (50-75) % Lymph % (Auto) 43.6 H (25-40) % [place] % (Auto) 5.2 (3-14) % Eos % (Auto) 2.3 (2-4) % Baso % (Auto) 1.0 (0-2) % Neut # (Auto) 2600 (2137-8687) /uL Lymph # (Auto) 2400 (2685-1104) /uL [place] # (Auto) 300 (0-900) /uL Eos # (Auto) 100 (0-450) /uL Baso # (Auto) 100 (0-100) /uL Sodium 135 L (137-145) mmol/L Potassium 3.5 (3.4-5.1) mmol/L Chloride 103 (98-107) mmol/L Carbon Dioxide 31 (22-32) mmol/L BUN 14 (7-17) mg/dL Creatinine 1.04 (0.52-1.04) mg/dL Estimated GFR 54.4 L (>60) mL/min BUN/Creatinine Ratio 13.5 (6-22) Glucose 86 (70-100) mg/dL Calcium 9.0 (8.4-10.2) mg/dL Total Bilirubin 0.3 (0.2-1.3) mg/dL AST 61 H (14-36) IU/L ALT 19 (<35) IU/L Alkaline Phosphatase 31 L (38-126) U/L Total Protein 6.7 (6.3-8.2) g/dL Albumin 4.3 (3.5-5.0) g/dL Globulin 2.4 (1.7-4.1) g/dL Albumin/Globulin Ratio 1.8 (1.0-2.8) Lipase 166 (23-300) U/L Urine Color Yellow Urine Appearance Clear Urine pH 7.0 (4.5-8.0) Ur Specific [place] 1.010 (1.000-1.035) Urine Protein Negative (Negative) Urine Glucose (UA) Negative (Negative) g/dL Urine Ketones Negative (NEGATIVE) Urine Occult Blood Negative (Negative) Urine Nitrate Negative (Negative) Urine Bilirubin Negative (NEGATIVE) Urine Urobilinogen 0.2 (0.2) E.U./dL Ur Leukocyte Esterase Negative (NEGATIVE) Urine RBC None seen (0-5/HPF) Urine WBC None seen (0-5/HPF) Ur Squamous Epith Cells 0-1 /hpf (0-5/HPF) Urine Bacteria None seen (None) Ur Culture Indicated? Culture not indicate Urine Dip Bedside Urine Glucose Negative Bedside Urine Bilirubin - Negative Bedside Urine Ketone - Negative Urine Specific [place] 1.015 Bedside Urine Occult Blood - Negative Bedside Urine pH 6.5 Bedside Urine Protein - Negative Bedside Urine Urobilinogen - Negative Bedside Urine Nitrite - Negative Bedside Urine Leukocytes - Negative Esterase MDM Narrative Medical decision making narrative: At this time patient is feeling better after Zofran. She does not want anything for pain. We did not check her TSH it was checked last week. It sounds that she is drinking tea and taking 77 micro g of levothyroxine. I will defer thyroid management to her primary care provider. At this time she is overall feeling a little bit better after fluids. She does not appear septic blood work is reassuring. No specific pain. She had a CT KUB last week which showed a right renal cyst but no kidney stone. At this time without specific pain or abnormal blood work I see no need for further imaging. I think her thyroid is extremely off and she has a lot of stress at home. Discussed results with patient and she agrees she feels better and would like to go. Discharge Plan Departure Patient Disposition: Home Clinical Impression: Weakness Hypothyroid Qualifiers: Hypothyroidism type: other Qualified Code(s): E03.8 - Other specified hypothyroidism Instructions: DI for Hypothyroidism Activity Restrictions/Additional Instructions: *You have been diagnosed with hypothyroid *What to do: I think your thyroid is likely contributing to her weakness and nausea. Please follow-up with her primary care provider at this can take a number of weeks to get under control however your medication may need to be changed. At this time no sign of infection blood work is overall reassuring *Continue to take medications as directed *Follow up with your primary care provider in 2-3 days *Return to ER if you should have increased weakness persistent nausea or vomiting fever or any new, worsening or concerning symptoms Prescriptions: No Action DOCUSATE SODIUM (Colace / Allie) 0 PO * UK DOSE/FREQUENCY Qty: 0 RF: 0 LEVOTHYROXINE SODIUM (Synthroid) 0.175 mg PO EVERY DAY Qty: 0 RF: 0 Oxycodone/Acetaminophen (Percocet 5-325 MG Tablet) 1 - 2 tab PO Q4H PRN Qty: 0 RF: 0 [CITRUS PILL] Qty: 0 RF: 0 ciprofloxacin HCl [Cipro] 500 mg tablet 500 mg PO BID Qty: 14 RF: 0 Referrals: Mary Grace Madden PA-C [Primary Care Provider] -
[2020-03-19] MEDS: ONDANSETRON 4 MG/2 ML INJ IV (14:02)
[2020-03-19] MEDS: SODIUM CHLORIDE 0.9% 1,000 ML 1000 ML IV (14:02)
[2020-03-19 14:05] LABS: Appearance Urine UA CLEAR; Bilirubin Urine UA NEGATIVE (NEGATIVE); Color Urine UA YELLOW; Glucose Urine UA NEGATIVE (Negative); Ketones Urine UA NEGATIVE (NEGATIVE); Leukocyte Esterase Urine UA NEGATIVE (NEGATIVE); Nitrite Urine UA NEGATIVE (Negative); Occult Blood Urine UA NEGATIVE (Negative); Protein Urine UA NEGATIVE (Negative); Urobilinogen Urine UA 0.2 E.U./dL (0.2)
[2020-03-19 14:31] LABS: Add Manual Diff / Slide Review NO; Basophils Absolute Auto 100 /uL (0-100); Eosinophils Absolute Auto 100 /uL (0-450); Eosinophils Percent Auto 2.3 % (2-4); Hemoglobin 12.2 g/dL (12.0-16.0); Lymphocytes Absolute Auto 2400 /uL (1100-4500); Lymphocytes Percent Auto 43.6 % (25-40); Mean Corpuscular HGB Conc 33.9 % (30-36); Mean Corpuscular Hemoglobin 30.1 PG (26-34); Mean Corpuscular Volume 88.9 fL (80-100); Monocytes Absolute Auto 300 /uL (0-900); Monocytes Percent Auto 5.2 % (3-14); Neutrophils Absolute Auto 2600 /uL (1500-7000); Neutrophils Percent Auto 47.9 % (50-75); Platelet Count 234 X10^3/uL (150-400); Red Blood Cell Count 4.05 X10^6/uL (4.0-5.2); White Blood Cell Count 5.5 X10^3/uL (4.5-11.0)
[2020-03-19 14:36] LABS: Alanine Aminotransferase 19 IU/L (<35); Albumin 4.3 g/dL (3.5-5.0); Albumin Globulin Ratio 1.8 (1.0-2.8); Alkaline Phosphatase 31 U/L (38-126); Aspartate Aminotransferase 61 IU/L (14-36); BUN Creatinine Ratio 13.5 (6-22); Bilirubin Total 0.3 mg/dL (0.2-1.3); Blood Urea Nitrogen 14 mg/dL (7-17); Carbon Dioxide 31 mmol/L (22-32); Chloride 103 mmol/L (98-107); Estimated Glomerular Filt Rate 54.4 mL/min (>60); Globulin 2.4 g/dL (1.7-4.1); Glucose 86 mg/dL (70-100); HEMOLYSIS < 15 (0-50); Lipase 166 U/L (23-300); Potassium 3.5 mmol/L (3.4-5.1); Sodium 135 mmol/L (137-145); Total Protein 6.7 g/dL (6.3-8.2)
[2020-03-19 15:08] LABS: Squamous Epithelial Cell Urine 0-1 /HPF (0-5/HPF)
--- NOTE | 2020-03-26 14:05 | PC.NURSE ---
Normal saline stop time - 03/19/2020 at 1540
== END 2020-03-19 15:43 | disposition home or self-care (01) ==
PROVIDERS: Emergency Provider Emergency Medicine; PCP Physician Assistant
DX: R53.1 Weakness (principal); E03.8 Other specified hypothyroidism; R11.0 Nausea
CPT/HCPCS: 36415; 80053; 81001; 81003; 83690; 85025; 93005; 96361; 96374; 99283; 99284; J2405

== ENCOUNTER 2020-08-17 14:47 | Emergency (ER) | payer MEDICARE, SELFPAY ==
[2020-08-17 15:00] VITALS: BP 125/70; PULSE 95; RESP 16; TEMP 37.3; O2SAT 100
--- NOTE | 2020-08-17 15:04 | DI.RAD.S_ITS ---
PROCEDURE: XR CHEST 1V INDICATIONS: chest pain TECHNIQUE: One view of the chest was acquired. COMPARISON: [facility], CT, CT KIDNEY URETER BLADDER (KUB), 03/11/2020, 23:16. [facility], CR, XR CHEST 1V, 08/12/2019, 13:14. FINDINGS: Surgical changes and devices: None. Lungs and pleura: Prominent lung volumes. Lungs are clear. No pleural effusions or pneumothorax. Mediastinum: Mediastinal contours appear normal. Heart size is normal. Bones and chest wall: No suspicious bony lesions. Overlying soft tissues appear unremarkable. IMPRESSION: No acute cardiopulmonary abnormality. Dictated by: Rajinder Stafford M.D. on 08/17/2020 at 15:24 Approved by: Rajinder Stafford M.D. on 08/17/2020 at 15:25
[2020-08-17 15:34] LABS: Add Manual Diff / Slide Review NO; Basophils Absolute Auto 0 /uL (0-100); Basophils Percent Auto 0.7 % (0-2); Eosinophils Absolute Auto 200 /uL (0-450); Eosinophils Percent Auto 2.4 % (2-4); Hematocrit 39.6 % (36-46); Hemoglobin 13.3 g/dL (12.0-16.0); Lymphocytes Absolute Auto 2600 /uL (1100-4500); Lymphocytes Percent Auto 38.4 % (25-40); Mean Corpuscular HGB Conc 33.5 % (30-36); Mean Corpuscular Hemoglobin 29.9 PG (26-34); Mean Corpuscular Volume 89.1 fL (80-100); Monocytes Absolute Auto 400 /uL (0-900); Monocytes Percent Auto 6.1 % (3-14); Neutrophils Absolute Auto 3600 /uL (1500-7000); Neutrophils Percent Auto 52.4 % (50-75); Platelet Count 276 X10^3/uL (150-400); Red Blood Cell Count 4.45 X10^6/uL (4.0-5.2); Red Cell Distribution Width 13.7 % (11.6-14.8); White Blood Cell Count 6.9 X10^3/uL (4.5-11.0)
[2020-08-17 15:39] LABS: Alanine Aminotransferase 17 IU/L (<35); Albumin 4.1 g/dL (3.5-5.0); Albumin Globulin Ratio 1.6 (1.0-2.8); Alkaline Phosphatase 43 U/L (38-126); Aspartate Aminotransferase 31 IU/L (14-36); BUN Creatinine Ratio 31.7 (6-22); Bilirubin Total 0.3 mg/dL (0.2-1.3); Blood Urea Nitrogen 19 mg/dL (7-17); Calcium 9.1 mg/dL (8.4-10.2); Carbon Dioxide 30 mmol/L (22-32); Chloride 106 mmol/L (98-107); Creatine Kinase 38 U/L (30-135); Estimated Glomerular Filt Rate > 60.0 mL/min (>60); Globulin 2.5 g/dL (1.7-4.1); Glucose 130 mg/dL (70-100); HEMOLYSIS < 15 (0-50); Lipase 193 U/L (23-300); Potassium 4.1 mmol/L (3.4-5.1); Sodium 140 mmol/L (137-145); Total Protein 6.6 g/dL (6.3-8.2)
[2020-08-17 15:51] LABS: Troponin I < 0.012 ng/mL (0.01-0.034)
[2020-08-17 17:15] LABS: Free T4, Direct Thyroxine 1.49 ng/dL (0.78-2.19)
== END 2020-08-17 20:36 | disposition left against medical advice (07) ==
PROVIDERS: Emergency Provider Emergency Medicine; PCP Physician Assistant
DX: R07.9 Chest pain, unspecified (principal); R11.0 Nausea
CPT/HCPCS: 36415; 71045; 80053; 82550; 83690; 84439; 84443; 84484; 85025; 93005; 99284

== ENCOUNTER 2024-03-31 10:28 | Emergency (ER) | payer MEDICARE, SELFPAY ==
[2024-03-31] VITALS (8 sets, daily range): BP systolic 104–125; BP diastolic 60–73; PULSE 65–74; RESP 15–36; TEMP 36.9; O2SAT 97–99; BMI 23.0
--- NOTE | 2024-03-31 10:33 | EKG_ITS ---
[address] [address] Test Date: 2024-03-31 Pat Name: Leeanne Tang Department: [facility] Room: Gender: Female Facility Coordinator: jonathon : 1960 Requested By: Order Number: [id number] Reading MD: Sonny Mora Measurements Intervals [place] Rate: 68 P: 70 OH: 150 QRS: 76 QRSD: 84 T: 63 QT: 400 QTc: 425 Interpretive Statements Normal sinus rhythm Electronically Signed On 03-31-2024 16:42:47 PST by Sonny Mora
--- NOTE | 2024-03-31 10:34 | DI.RAD.S_ITS ---
PROCEDURE: XR CHEST 1V INDICATIONS: chest pain TECHNIQUE: One view of the chest was acquired. COMPARISON: [facility], CR, XR CHEST 1V, 08/17/2020, 15:06. FINDINGS: Surgical changes and devices: None. Lungs and pleura: Lungs are clear. No pleural effusions or pneumothorax. Mediastinum: Mediastinal contours appear normal. Heart size is normal. Bones and chest wall: No suspicious bony lesions. Overlying soft tissues appear unremarkable. IMPRESSION: No acute cardiopulmonary abnormality is seen. Dictated by: Servando Khan M.D. on 03/31/2024 at 11:59 Approved by: Servando Khan M.D. on 03/31/2024 at 12:00
--- NOTE | 2024-03-31 10:34 | ED_ITS ---
HPI - Chest Pain General Chief Complaint: Chest Pain Stated Complaint: Per patient, Might be having heart attack Time Seen by Provider: 03/31/24 10:34 History of Present Illness HPI narrative: 63-year-old female with past medical history of hypothyroidism comes into the ED from home for evaluation of back pain, states it has been intermittent in nature ongoing and persistent for the past several months, she states that she has seen her primary care doctor for this is due for a stress test in about a week, however she states today she woke up had worsening back pain that has not subsided, states when that happened she felt like it radiated to her chest but denies any nausea vomiting abdominal pain headache visual disturbances. Patient states that currently at time evaluation symptoms have completely resolved. No trauma no falls. Related Data Home Medications Medication Instructions Recorded Confirmed DOCUSATE SODIUM (Colace / Allie) 0 PO * UK DOSE/FREQUENCY ##0 05/19/06 LEVOTHYROXINE SODIUM (Synthroid) 0.175 mg PO EVERY DAY ##0 05/19/06 Oxycodone/Acetaminophen (Percocet 1 - 2 tab PO Q4H PRN ##0 05/19/06 5-325 MG Tablet) [CITRUS PILL] ##0 05/19/06 Previous Rx's Medication Instructions Recorded ciprofloxacin HCl 500 mg tablet 500 mg PO BID #14 tabs 03/11/20 (Cipro) Allergies Allergy/AdvReac Type Severity Reaction Status Date / Time egg [EGG] Allergy Unknown HIVES, Verified 08/12/19 13:39 ITCHING morphine Allergy Unknown Verified 08/12/19 13:39 Penicillins [PENICILLINS] Allergy Unknown WELTS Verified 08/12/19 13:39 Sulfa (Sulfonamide Allergy Unknown ANAPHYLAXIS Verified 08/12/19 13:39 Antibiotics) [SULFA (SULFONAMIDE ANTIBIOTICS)] ANTIINFLAMMATORIES Allergy Unknown PHARMACIST Uncoded 08/12/19 13:39 SAYS STAY AWAY FROM IT. Review of Systems Review of Systems Narrative: General: Denies fever, chills, weight loss HEENT: Denies headache, eye drainage, eye irritation, head trauma, sore throat, voice change Cardiovascular: Positive chest pain, denies palpitations, shortness of breath, tachycardia Respiratory: Denies any shortness of breath, cough, wheeze, stridor GI/: Denies any abdominal pain, nausea, vomiting, diarrhea, bright red blood per rectum, melanotic stools, urinary frequency, urinary retention, dysuria, hematuria MSK: Positive back pain Skin: Denies any rashes, lesions, discoloration Neuro: Denies any headache, lightheadedness, dizziness, fainting, weakness Psych: Denies SI/HI Patient History Medical History (Updated 03/31/24 @ 12:50 by Fadi Barbosa DO) Hypothyroid Toxic shock Social History Smoking Status: Current every day smoker Smoking Status: Current every day smoker Exam Narrative Exam Narrative: General: Cooperative, comfortable, well-developed, not in acute distress HEENT: Normocephalic, atraumatic, PERRLA, normal sclera, eyelids normal, Neck: Active full range of motion, atraumatic Chest: Normal to inspection, negative crepitus, no overlying erythema ecchymosis Respiratory: Normal respiratory effort, not in acute respiratory distress, clear to auscultation bilaterally negative cough, wheeze, tachypnea, rhonchi, rales Cardiology: Regular rate rhythm negative gallop, murmur, rubs GI/: Normal to inspection, soft, nonrigid, no tenderness to palpation, exam deferred MSK: Full range of active range of motion of all 4 extremities, atraumatic Skin: No rashes lesions noted Neuro: Alert awake oriented x3, moves all 4 extremities spontaneously, cranial nerves intact, able to answer all questions appropriately follows commands appropriately Psych: Cooperative, negative suicidal or homicidal ideations Initial Vital Signs Initial Vital Signs: Vital Signs Temperature 98.4 F 03/31/24 10:37 Pulse Rate 73 03/31/24 10:37 Respiratory Rate 18 03/31/24 10:37 Blood Pressure 125/73 03/31/24 10:37 Pulse Oximetry 99 03/31/24 10:37 Oxygen Delivery Method Room Air 03/31/24 10:37 Course Orders Ordered: ED Orders 03/31/24 10:33 EKG-12 Lead Stat 03/31/24 10:34 XR chest 1V Stat 03/31/24 10:45 Complete Blood Count AUTO DIFF Stat Comprehensive Metabolic Panel Stat Lipase Stat MAG [Magnesium] Stat Troponin & CK Cardiac Panel Stat Discontinued Medications Aspirin (Aspirin 81 Mg Chew Tab) 324 mg PO NOW ONE Stop: 03/31/24 10:35 Last Admin: 03/31/24 12:59 Dose: Not Given Documented By: CTS Vital Signs Vital signs: Vital Signs - 8 hr 03/31/24 10:37 03/31/24 10:37 03/31/24 11:00 Temperature 98.4 F Pulse Rate 73 74 Respiratory Rate 18 Blood Pressure 125/73 113/69 Pulse Oximetry 99 98 Oxygen Delivery Method Room Air 03/31/24 11:00 03/31/24 11:30 03/31/24 11:44 Temperature Pulse Rate 70 67 Respiratory Rate 24 27 H Blood Pressure 116/60 Pulse Oximetry 97 98 Oxygen Delivery Method 03/31/24 11:44 03/31/24 12:00 03/31/24 12:00 Temperature Pulse Rate 70 65 Respiratory Rate 24 36 H Blood Pressure 104/64 Pulse Oximetry 99 98 Oxygen Delivery Method 03/31/24 12:30 Temperature Pulse Rate 67 Respiratory Rate 25 H Blood Pressure Pulse Oximetry 98 Oxygen Delivery Method MDM - Chest Pain Differential Diagnosis Differential diagnosis: Likely other (ACS, pneumonia, electrolyte abnormality, muscle spasm) Lab Data 03/31/24 10:45 03/31/24 10:45 Labs: Lab Results 03/31/24 Range/Units 10:45 WBC 5.7 (4.5-11.0) X10^3/uL RBC 4.40 (4.0-5.2) X10^6/uL Hgb 12.9 (12.0-16.0) g/dL Hct 38.6 (36-46) % MCV 87.8 (80-100) fL MCH 29.2 (26-34) PG MCHC 33.3 (30-36) % RDW 14.2 (11.6-14.8) % Plt Count 280 (150-400) X10^3/uL Neut % (Auto) 45.8 L (50-75) % Lymph % (Auto) 42.9 H (25-40) % [place] % (Auto) 6.0 (3-14) % Eos % (Auto) 4.6 H (2-4) % Baso % (Auto) 0.7 (0-2) % Neut # (Auto) 2600 (1242-6125) /uL Lymph # (Auto) 2400 (8233-1672) /uL [place] # (Auto) 300 (0-900) /uL Eos # (Auto) 300 (0-450) /uL Baso # (Auto) 0 (0-100) /uL Sodium 139 (137-145) mmol/L Potassium 3.9 (3.4-5.1) mmol/L Chloride 104 (98-107) mmol/L Carbon Dioxide 28 (22-32) mmol/L BUN 16 (7-17) mg/dL Creatinine 0.75 (0.52-1.04) mg/dL Estimated GFR > 60 (>60) mL/min BUN/Creatinine Ratio 21.3 (6-22) Glucose 91 (80-110) mg/dL Calcium 9.2 (8.4-10.2) mg/dL Magnesium 2.1 (1.6-2.3) mg/dL Total Bilirubin 0.5 (0.2-1.3) mg/dL AST 38 H (14-36) IU/L ALT 17 (<35) IU/L Alkaline Phosphatase 49 (38-126) U/L Total Creatine Kinase 62 (30-135) U/L Troponin I < 0.012 (0.01-0.034) ng/mL Total Protein 6.8 (6.3-8.2) g/dL Albumin 4.3 (3.5-5.0) g/dL Globulin 2.5 (1.7-4.1) g/dL Albumin/Globulin Ratio 1.7 (1.0-2.8) Lipase 147 (23-300) U/L Imaging Data Chest x-ray: Radiologist's Impression: [address] [address] XRay Report Signed Patient: Leeanne Tang MR#: [id number] : 1960 Acct:[id number] Age/Sex: 63 / F Date of Service: 03/31/24 Loc: ED Accession Number: [id number] Procedure: XR chest 1V Ordering Provider: Fadi Barbosa D.O. PROCEDURE: XR CHEST 1V INDICATIONS: chest pain TECHNIQUE: One view of the chest was acquired. COMPARISON: [facility], , XR CHEST 1V, 08/17/2020, 15:06. FINDINGS: Surgical changes and devices: None. Lungs and pleura: Lungs are clear. No pleural effusions or pneumothorax. Mediastinum: Mediastinal contours appear normal. Heart size is normal. Bones and chest wall: No suspicious bony lesions. Overlying soft tissues appear unremarkable. IMPRESSION: No acute cardiopulmonary abnormality is seen. ECG Data Interpretation: EKG interpreted ED physician sinus 68 beats per minute normal axis nonspecific ST changes QTC 425 no STEMI MDM Narrative Medical decision making narrative: 63-year-old female with a history of hypothyroidism presents for thoracic back pain/spasming states started spontaneously several months ago has been intermittent nature. States the pain was worse today radiated to her chest therefore came into the ED, at initial evaluation symptoms completely resolved. EKG nonischemic in nature patient had chest x-ray that that not show any acute cardiopulmonary abnormality. Patient without any leukocytosis Chem panel unremarkable. Patient with troponin negative, heart score 1. Symptoms more likely secondary to muscle spasm/strain. Patient already in the process of obtaining a stress test in the next 3 days. Was instructed to follow up with primary care and Cardiology in outpatient setting, patient given strict return precautions she verbalized understanding of these and agrees to being discharged home with outpatient follow up Discharge Plan Departure Patient Disposition: Home Clinical Impression: Chest pain, Back pain Instructions: DI for Chest Pain Activity Restrictions/Additional Instructions: Please follow up with primary care and Cardiology Please read the discharge instructions sheet carefully and bring all papers to all doctor follow-up visits, as it may contain information that your doctor may want to see. Disease processes change and evolve, if your symptoms worsen or if you develop any new symptoms that are concerning to you please return for evaluation. Your evaluation today does not show any evidence of any life- threatening/serious illnesses requiring admission to the hospital or surgery. Please follow-up with your doctor for re-evaluation in approximately 1 day. Seek immediate medical attention for any worrisome symptoms. *If you do not have a primary care provider please contact the [facility] Resource line at [phone]. They will ask some questions about your medical history and help get you set up with a doctor in the community. Prescriptions: No Action DOCUSATE SODIUM (Colace / Allie) 0 PO * UK DOSE/FREQUENCY Qty: 0 LEVOTHYROXINE SODIUM (Synthroid) 0.175 mg PO EVERY DAY Qty: 0 Oxycodone/Acetaminophen (Percocet 5-325 MG Tablet) 1 - 2 tab PO Q4H PRN Qty: 0 [CITRUS PILL] Qty: 0 ciprofloxacin HCl [Cipro] 500 mg tablet 500 mg PO BID Qty: 14 0RF Referrals: Mary Grace Madden PA-C [Primary Care Provider] - Mya Bryson MD [Physician] - Stand Alone Forms: Patient Portal/API/Survey
[2024-03-31 10:52] LABS: Add Manual Diff / Slide Review NO; Basophils Absolute Auto 0 /uL (0-100); Basophils Percent Auto 0.7 % (0-2); Eosinophils Absolute Auto 300 /uL (0-450); Eosinophils Percent Auto 4.6 % (2-4); Hematocrit 38.6 % (36-46); Hemoglobin 12.9 g/dL (12.0-16.0); Lymphocytes Absolute Auto 2400 /uL (1100-4500); Lymphocytes Percent Auto 42.9 % (25-40); Mean Corpuscular HGB Conc 33.3 % (30-36); Mean Corpuscular Hemoglobin 29.2 PG (26-34); Mean Corpuscular Volume 87.8 fL (80-100); Monocytes Absolute Auto 300 /uL (0-900); Neutrophils Absolute Auto 2600 /uL (1500-7000); Neutrophils Percent Auto 45.8 % (50-75); Platelet Count 280 X10^3/uL (150-400); Red Cell Distribution Width 14.2 % (11.6-14.8); White Blood Cell Count 5.7 X10^3/uL (4.5-11.0)
[2024-03-31 11:06] LABS: Alanine Aminotransferase 17 IU/L (<35); Albumin 4.3 g/dL (3.5-5.0); Albumin Globulin Ratio 1.7 (1.0-2.8); Alkaline Phosphatase 49 U/L (38-126); Aspartate Aminotransferase 38 IU/L (14-36); BUN Creatinine Ratio 21.3 (6-22); Bilirubin Total 0.5 mg/dL (0.2-1.3); Blood Urea Nitrogen 16 mg/dL (7-17); Calcium 9.2 mg/dL (8.4-10.2); Carbon Dioxide 28 mmol/L (22-32); Chloride 104 mmol/L (98-107); Creatine Kinase 62 U/L (30-135); Estimated Glomerular Filt Rate > 60 mL/min (>60); Globulin 2.5 g/dL (1.7-4.1); Glucose 91 mg/dL (80-110); HEMOLYSIS < 15 (0-50); Lipase 147 U/L (23-300); Magnesium 2.1 mg/dL (1.6-2.3); Potassium 3.9 mmol/L (3.4-5.1); Sodium 139 mmol/L (137-145); Total Protein 6.8 g/dL (6.3-8.2)
[2024-03-31 11:18] LABS: Troponin I < 0.012 ng/mL (0.01-0.034)
== END 2024-03-31 13:51 | disposition home or self-care (01) ==
PROVIDERS: Emergency Provider Student in an Organized Health Care Education/Training Program; PCP Physician Assistant
DX: R07.9 Chest pain, unspecified (principal); M54.6 Pain in thoracic spine; M62.830 Muscle spasm of back; E03.9 Hypothyroidism, unspecified
CPT/HCPCS: 36415; 71045; 80053; 82550; 83690; 83735; 84484; 85025; 93005; 99284